=== PATIENT | male | born 2000 | race Hispanic/Latino ===

== ENCOUNTER 2021-09-13 23:48 | Emergency (ER) | payer SELFPAY ==
[~2021-09-13] VITALS: Ht 170.2 cm; Wt 85.7 kg
[2021-09-14 01:25] VITALS: BP 129/74
[2021-09-14] MEDS: LIDOCAINE HCL MPF 1% 5ML VIAL ONE (01:26)
== END 2021-09-14 01:51 | disposition home or self-care (01) ==
LOC: EDH 23:48
DX: S51.812A Laceration without foreign body of left forearm, initial encounter (principal); X58.XXXA Exposure to other specified factors, initial encounter; Y93.89 Activity, other specified; Y92.89 Other specified places as the place of occurrence of the external cause; Y99.8 Other external cause status
CPT/HCPCS: 12001; 99282; J3490